=== PATIENT | male | born 1975 | race Caucasian/White ===

== ENCOUNTER 2018-11-25 10:53 | Emergency (ER) | payer BC, OTHER ==
[~2018-11-25] VITALS: Ht 180.3 cm; Wt 100.2 kg
[2018-11-25 11:07] VITALS: Ht 180.3 cm; Wt 100.2 kg
[2018-11-25 15:43] VITALS: BP 103/61
== END 2018-11-25 15:43 | disposition home or self-care (01) ==
LOC: ED 10:53
DX: J18.9 Pneumonia, unspecified organism (principal); Z88.6 Allergy status to analgesic agent; Z88.5 Allergy status to narcotic agent
CPT/HCPCS: 87804; J0696; J1885; J7030; Q0092